=== PATIENT | male | born 1960 | race Caucasian/White ===

== ENCOUNTER 2025-02-19 06:14 | Day surgery (SDC) | payer OTHER, SELFPAY | END 2025-02-19 15:36 | disposition home or self-care (01) | LOC: GI 06:14 | PROVIDERS: ATTENDING PHYSICIAN Internal Medicine Gastroenterology | DX: Z12.11 Encounter for screening for malignant neoplasm of colon (principal); R19.5 Other fecal abnormalities | CPT/HCPCS: G0105 ==